=== PATIENT | female | born 1950 | race Hispanic/Latino ===

== ENCOUNTER 2018-03-04 19:49 | Emergency (ER) | payer OTHER ==
[~2018-03-04] VITALS: Ht 162.6 cm; Wt 95.3 kg
[~2018-03-04 19:49] MED LIST: ACIPHEX20 MG PO; ASPIRIN81 MG PO; LEVOTHYROXINE50 MCG PO; PRINIVIL20 MG PO; WELCHOL625 MG PO; ZETIA10 MG PO
[2018-03-04] MEDS ORDERED: HYDROCODONE/APAP 7.5MG-325MG 1 EA TAB PO STA (20:12)
--- NOTE | 2018-03-04 21:18 | Diagnostic Imaging Report ---
Exam: AP chest and right rib series Indication: right rib pain after a fall Comparison: None Findings: No evidence of a rib fracture. The lungs are clear. No pleural effusion or pneumothorax. Normal appearance of the heart. Impression: Normal appearance of the chest. No evidence of a rib fracture. Signed by: Dr. Iwona Golden M.D. on 03/04/2018 9:14 PM
== END 2018-03-04 22:00 | disposition home or self-care (01) ==
LOC: ER 19:49
DX: S20.221A Contusion of right back wall of thorax, initial encounter (principal); W01.0XXA Fall on same level from slipping, tripping and stumbling without subsequent striking against object, initial encounter; Y92.008 Other place in unspecified non-institutional (private) residence as the place of occurrence of the external cause; I10 Essential (primary) hypertension; E78.5 Hyperlipidemia, unspecified; E07.9 Disorder of thyroid, unspecified
CPT/HCPCS: 71101; 99283

== ENCOUNTER 2022-10-24 19:44 | Emergency (ER) | payer MEDICARE, OTHER ==
[~2022-10-24] VITALS: Ht 162.6 cm; Wt 95.3 kg
[2022-10-24] MEDS ORDERED: HYDROCODONE/APAP 7.5MG-325MG 1 EA TAB PO ONE (20:15)
[2022-10-24] MEDS ORDERED: HYDROCODON-ACE1 EAC9 PO (22:43)
[2022-10-24 22:48] VITALS: BP 156/74
== END 2022-10-24 22:51 | disposition home or self-care (01) ==
LOC: ER 19:50
DX: S42.292A Other displaced fracture of upper end of left humerus, initial encounter for closed fracture (principal); S00.83XA Contusion of other part of head, initial encounter; W18.39XA Other fall on same level, initial encounter; Y93.01 Activity, walking, marching and hiking; Y92.89 Other specified places as the place of occurrence of the external cause; I10 Essential (primary) hypertension; E78.5 Hyperlipidemia, unspecified; E03.9 Hypothyroidism, unspecified
CPT/HCPCS: 70450; 72125; 99284